=== PATIENT | male | born 1930 | race Caucasian/White ===

== ENCOUNTER 2017-01-20 14:36 | Emergency (ER) | payer OTHER, MEDICARE ==
--- NOTE | 2017-01-20 14:55 | EDPHY ---
H & P Stated Complaint: Feels ping in left chest for last three weeks. Poss hernia. HPI/ROS: CHIEF COMPLAINT: Chest pain. HISTORY OF PRESENT ILLNESS: The patient is an 86-year-old male with a history of CAD and hypertension who presents with sharp left-sided chest pains. He describes them as short, sharp bursts of pain just under the left ribcage that last for 1-2 seconds. He has had 17 of these pains today but has felt them for the past 3 weeks. They have been increasing in frequency recently. He cannot think of inciting or mitigating factors. He denies nausea, shortness of breath, cough, cold symptoms, arm pain, diaphoresis or other complaints. He denies recent traumas to his chest. He does report having pain in the epigastrium from a hernia he has had for many years but the pain today feels different. REVIEW OF SYSTEMS: A ten point review of systems was performed and is negative with the exception of the items mentioned in the HPI. Source: Patient Exam Limitations: No limitations - Personal History Tetanus Vaccine Date: many many years ago - Medical/Surgical History Hx Asthma: No Hx Chronic Respiratory Disease: No Hx Diabetes: No Hx Cardiac Disease: Yes Hx Renal Disease: No Hx Cirrhosis: No Hx Alcoholism: No Hx HIV/AIDS: No Hx Splenectomy or Spleen Trauma: No Other PMH: 1. HTN. 2. CAD. 3. Elevated lipids. 4. 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 5. Arthritis-neck, toes, left hip shoulder - Social History Smoking Status: Never smoked Drug Use: None Additional Social History: He is . - Physical Exam Exam: General Appearance: Alert. Vital signs reviewed. BP 171/85. Eyes: Pupils equal and round, no conjunctival injection, no discharge. Anicteric. ENT, Mouth: Mucous membranes are moist, no oropharyngeal erythema or edema. Neck: No lymphadenopathy, supple. Respiratory: Lungs are clear to auscultation; no wheezes, rales, or rhonchi. Cardiovascular: Regular rate and rhythm; no murmur, rub, or gallop. Gastrointestinal: Abdomen is soft and nontender, no masses or organomegaly, bowel sounds normal. Guarding in mid-epigastric area. Ongoing tenderness in mid- epigastric area due to a known ventral hernia. Skin: Warm and dry, no rashes on exposed skin, normal color. Back: Nontender to palpation over the thoracolumbar spine. No CVAT. Extremities: No lower extremity edema, no calf tenderness or swelling. Neurological: Alert and oriented. Moving all four extremities easily and equally. Psychiatric: Normal affect. Constitutional: Initial Vital Signs Temperature (C) 36.3 C 01/20/17 14:44 Heart Rate 99 01/20/17 14:44 Respiratory Rate 20 01/20/17 14:44 Blood Pressure 171/85 H 01/20/17 14:44 O2 Sat (%) 94 01/20/17 14:44 O2 Delivery Mode Room Air Allergies/Adverse Reactions: No Known Allergies Allergy (Verified 01/20/17 14:43) Home Medications: Medication Instructions Recorded Cholecalciferol Vit D3 [Vitamin D3 1,000 units PO DAILY 08/23/12 1000 units (OTC)] Herbals/Supplements -Info Only 1 each PO AD 08/23/12 [place]-3 Fatty Acids [Fish Oil 1000 1,000 mg PO BID@,15 08/23/12 mg (OTC)] Atorvastatin Calcium [Lipitor] 40 mg PO DAILY 03/01/15 Hydrochlorothiazide [HCTZ (RX)] 25 mg PO DAILY 03/01/15 Multivitamins [Tab-A-Viral] 1 each PO DAILY 03/01/15 ASPIRIN 03/03/16 PENICILLIN V POTASSIUM 03/03/16 Medical Decision Making - Diagnostics EKG Interpretation: 12-LEAD EKG: Please see the full report in [facility]. My interpretation: Normal sinus rhythm Imaging: I viewed and interpreted images myself ED Course/Re-evaluation: 86-year-old male with a cardiac history including hypertension and CAD presents with intermittent sharp left-sided chest pains. On exam he does have a ventral hernia with tenderness in the epigastrium but reports he has had this pain for the past 25 years and today's pain is different in nature and to the left of the hernia pain. I have low suspicion for cardiac process in this patient who is having very brief episodes of sharp pain. We will check an EKG and chest x- ray. An IV was established and labs ordered. 1636: Reassessed patient. We discussed the results of his workup so far.Troponin normal in the setting of pain that has been intermittently present for weeks, with an increase today. No associated symtoms. No precipitating factors. I think this is unlikely to be ACS, as the description is quite atypical. I do not find evidence of pericarditis on EKG or CXR. He does not appear to have an infectious process. There is no pneumonia or other acute process on CXR. No signs of CHF. He is comfortable going home and I feel he is safe to do so. I recommended he follow up with his PCP and return to the ED for any change in his chest pain. I recommended Tylenol for pain control. He is comfortable with this plan. - Data Points Laboratory Results: Laboratory Results 01/20/17 15:20 01/20/17 15:20 Medications Given: Discontinued Medications Aspirin (Aspirin) 324 mg PO EDNOW ONE Stop: 01/20/17 15:15 Last Admin: 01/20/17 15:24 Dose: 324 mg Departure - Departure Disposition: Home, Routine, Self-Care Clinical Impression: Chest pain Qualifiers: Chest pain type: other chest pain Qualified Code(s): R07.89 - Other chest pain ; R07.8 - Other chest pain Condition: Good Instructions: Chest Pain (ED) Additional Instructions: If your chest pain worsens, changes in nature, or becomes constant, you should return to the emergency department. Otherwise, follow up with your primary care provider next week for reevaluation. Take 650mg Tylenol every 4-6 hours as needed for pain. Return to the emergency department for any other serious worsening of condition. Referrals: Sarah Real, SENIOR SUSTAINABILITY ADVISOR [Primary Care Provider] - As per Instructions Report Scribed for: Kia Santiago Report Scribed by: Maurice Rolon Date of Report: 01/20/17 Time of Report: 15:02 Physician Review and Approval Statement: 01/20/17 14:55 Portions of this note were transcribed by the bilingual medical receptionist. I, Dr. Kia Santiago, personally performed the history, physical exam, and medical decision- making; and confirmed the accuracy of the information in the transcribed note.
[2017-01-20] MEDS ORDERED: ASPIRIN 81 MG CHEWABLE TAB PO ONE (15:14)
[2017-01-20 15:28] LABS: % IMMATURE GRANULYOCYTES 0.3 % (0.0-1.1); ABSOLUTE IMMATURE GRANULOCYTES 0.02 10^3/uL (0.00-0.10); ADD DIFF? NO; ADD MORPH? NO; ADD SCAN? NO; ATYPICAL LYMPHOCYTE FLAG 10 (0-99); FRAGMENT RBC FLAG 0 (0-99); HEMATOCRIT 39.6 % (40.0-51.0); HEMOGLOBIN 14.1 g/dL (13.7-17.5); LEFT SHIFT FLG 0 (0-99); LIPEMIA HEMOLYSIS FLAG 90 (0-99); MEAN CELL HEMOGLOBIN 30.5 pg (27.9-34.1); MEAN CELL HEMOGLOBIN CONCENTR. 35.6 g/dL (32.4-36.7); MEAN CELL VOLUME 85.7 fL (81.5-99.8); MEAN PLATELET VOLUME 9.9 fL (8.7-11.7); PLATELET CLUMPS FLAG 0 (0-99); PLATELET COUNT 170 10^3/uL (150-400); RED BLOOD CELL COUNT 4.62 10^6/uL (4.40-6.38); RED CELL DISTRIBUTION WIDTH 12.1 % (11.5-15.2)
[2017-01-20 15:38] LABS: ANION GAP 14 mEq/L (8-16); CALCIUM 10.5 mg/dL (8.5-10.4); CARBON DIOXIDE 21 mEq/l (22-31); CHLORIDE 103 mEq/L (97-110); CREATININE 1.1 mg/dL (0.7-1.3); GLOMERULAR FILTRATION RATE > 60; GLUCOSE 211 mg/dL (70-100); POTASSIUM 3.8 mEq/L (3.5-5.2); SODIUM 138 mEq/L (134-144)
--- NOTE | 2017-01-20 15:40 | CPEKG ---
Heart Rate: 76 RR Interval: 789 P-R Interval: 204 QRSD Interval: 98 QT Interval: 392 QTC Interval: 441 P [place]: 37 QRS [place]: 40 T Wave [place]: 22 EKG Severity - ABNORMAL ECG - EKG Impression: SINUS RHYTHM EKG Impression: INFERIOR INFARCT, AGE INDETERMINATE Electronically Signed By: Kia Santiago 21-Jan-2017 00:06:05
[2017-01-20 15:49] LABS: TROPONIN I < 0.012 ng/mL (0-0.034)
[2017-01-20 17:23] VITALS: RESP 16
[2017-01-20 17:24] VITALS: BP 143/85; PULSE 72; TEMP 97.7; O2SAT 92
== END 2017-01-20 17:24 | disposition home or self-care (01) ==
DX: R07.89 Other chest pain (principal); I10 Essential (primary) hypertension; I25.10 Atherosclerotic heart disease of native coronary artery without angina pectoris; Z79.82 Long term (current) use of aspirin; Z85.46 Personal history of malignant neoplasm of prostate

== ENCOUNTER → 2017-02-07 | Outpatient (CLI) | payer OTHER, MEDICARE | LOC: BMCIMAGING 15:17 | PROVIDERS: ATTEND Orthopaedic Surgery | DX: M16.0 Bilateral primary osteoarthritis of hip (principal); M17.12 Unilateral primary osteoarthritis, left knee; M11.262 Other chondrocalcinosis, left knee; I70.202 Unspecified atherosclerosis of native arteries of extremities, left leg ==

== ENCOUNTER → 2017-02-13 | Outpatient (CLI) | payer OTHER, MEDICARE | LOC: FIMAGING 14:10 | PROVIDERS: ATTEND Orthopaedic Surgery | DX: M16.0 Bilateral primary osteoarthritis of hip (principal); M48.07 Spinal stenosis, lumbosacral region; M46.96 Unspecified inflammatory spondylopathy, lumbar region; K57.30 Diverticulosis of large intestine without perforation or abscess without bleeding ==

== ENCOUNTER 2017-03-05 10:24 | Inpatient (IN) | payer OTHER, MEDICARE ==
--- NOTE | 2017-03-05 07:00 | PDHPUP ---
History & Physical Update H&P update statement: This history and physical update is based on an assessment of the patient which was completed after admission or registration (within 24 hours), but prior to the surgery/procedure.
--- NOTE | 2017-03-05 07:01 | PDIAF ---
- Diagnosis Diagnosis: left hip djd Code Status: Full Code - Medication Management Discharge Medications: Medications to Continue on Transfer Aspirin [Aspirin 81mg (*)] 81 mg PO DAILY 02/09/17 [Last Taken Unknown] Atorvastatin Calcium [Lipitor 40 mg (*)] 40 mg PO DAILY 02/09/17 [Last Taken Unknown] Hydrochlorothiazide [HCTZ (*)] 12.5 mg PO DAILY 02/09/17 [Last Taken Unknown] Irbesartan [Avapro 75 mg (*)] 75 mg PO DAILY 02/09/17 [Last Taken Unknown] metFORMIN HCL [Metformin HCl ER] 500 mg PO DAILY@18 02/09/17 [Last Taken Unknown ] Discharge Medications: Refer to the Discharge Home Medication list for PRN reason. - Orders Services needed: Physical Therapy Activity/Weight Bearing Restrictions: wbat. anterior hip precautions. daily dressing changes. may shower without bandage. no soaking or immersion. linette hose x 2 weeks. f/u at two weeks. seek attn for increasing redness, drainage or discharge. aspirin 325 mg po daily - Follow Up Care Current Providers and Referrals: Sarah Real NP [Primary Care Provider] -
[~2017-03-05 10:24] MED LIST: ROPIVACAINE 0.2% 80 MG, EPINEPHrine 0.2 MG, KETOROLAC TROMETHAMINE 30 MG, morphINE 10 M... IU ONE; TRANEXAMIC ACID 2,000 MG in NS 100 ML IV ONE; TRANEXAMIC ACID 3,000 MG in NS 50 ML IRR ONE
[2017-03-05] MEDS ORDERED: DIPHENOXYLATE/ATROPINE LOMOTIL 1 TAB PO PRN (10:40)
[2017-03-05] MEDS ORDERED: ONDANSETRON DISINTEGRATING 4 MG TAB PO PRN (10:40)
[2017-03-05] MEDS ORDERED: PROMETHAZINE HCL 25 MG SUPPR PR PRN (10:40)
[2017-03-05] MEDS ORDERED: ONDANSETRON 4 MG/2 ML VIAL IVP PRN ×2 (10:40→13:03)
[2017-03-05] MEDS ORDERED: METOCLOPRAMIDE 10 MG/2 ML VIAL IVP PRN (10:40)
[2017-03-05] MEDS ORDERED: diphenhydrAMINE 25 MG CAP PO PRN (10:40)
[2017-03-05] MEDS ORDERED: MAGNESIUM HYDROXIDE 30 ML UDCUP PO PRN (10:40)
[2017-03-05] MEDS ORDERED: traMADol 50 MG TAB PO PRN (10:40)
[2017-03-05] MEDS ORDERED: DIAZEPAM 5 MG TAB PO PRN (10:40)
[2017-03-05] MEDS ORDERED: TEMAZEPAM 15 MG CAP PO PRN (10:40)
[2017-03-05] MEDS ORDERED: PROMETHAZINE HCL 25 MG/ML INJ IVP PRN (10:40)
[2017-03-05] MEDS ORDERED: POLYETHYLENE GLYCOL 3350 17 GM PKT PO PRN (10:40)
[2017-03-05] MEDS ORDERED: LR 1,000 ML IV SCH (10:40)
[2017-03-05] MEDS ORDERED: FAMOTIDINE 20 MG TAB PO ONE (10:40)
[2017-03-05] MEDS ORDERED: oxyCODONE IR 5 MG TAB PO PRN (10:40)
[2017-03-05] MEDS ORDERED: PHARMACY PAIN CONSULT 1 EA MISC PRN (10:40)
[2017-03-05] MEDS ORDERED: ceFAZolin 2 GM/DEXTROSE 100 ML IV ONE (10:40)
[2017-03-05] MEDS ORDERED: BISACODYL 10 MG SUPP PR PRN (10:40)
[2017-03-05] MEDS ORDERED: ACETAMINOPHEN 325 MG TAB PO ONE (10:40)
[2017-03-05] MEDS ORDERED: LACTULOSE 20 GM/30 ML UDCUP PO PRN (10:40)
[2017-03-05] MEDS ORDERED: LIDOCAINE 1% 2 ML INJ ONE (10:52)
[2017-03-05] MEDS ORDERED: LIDOCAINE 1% 2 ML INJ ID PRN (10:54)
[2017-03-05] MEDS ORDERED: LR 1,000 ML IV ONE (10:54)
[2017-03-05] MEDS ORDERED: THROMBIN (BOVINE) 5,000 UNIT VIAL TP ONE (11:16)
[2017-03-05] MEDS ORDERED: CALCIUM CHLORIDE 1 GM/10 ML INJ ONE (11:16)
[2017-03-05] MEDS ORDERED: ceFAZolin 1 GM/5 ML SYR ONE (11:16)
--- NOTE | 2017-03-05 11:24 | PDANEPAE ---
ANE History of Present Illness 86 year old male with PMHx of HTN, NIDDM, prostate cancer (s/p chemo & radiation ) with chronic left hip pain presents for left hip arthroplasty. ANE Past Medical History - Cardiovascular History Hx Hypertension: Yes Hx Arrhythmias: No Hx Chest Pain: No Hx Coronary Artery / Peripheral Vascular Disease: Yes Hx CHF / Valvular Disease: No Hx Palpitations: No Cardiovascular History Comment: CAD improving. - Pulmonary History Hx COPD: No Hx Asthma/Reactive Airway Disease: No Hx Recent Upper Respiratory Infection: No Hx Oxygen in Use at Home: No Hx Sleep Apnea: No Sleep Apnea Screening Result - Last Documented: Positive - Neurologic History Hx Cerebrovascular Accident: No Hx Seizures: No Hx Dementia: No - Endocrine History Hx Diabetes: Yes Endocrine History Comment: NIDDM - Renal History Hx Renal Disorders: Yes Renal History Comment: Stones in past. - Liver History Hx Hepatic Disorders: No - Neurological & Psychiatric Hx Hx Neurological and Psychiatric Disorders: No - Cancer History Hx Cancer: Yes Cancer History Comment: Prostate CA-chemo, radiation. Basal CA-removed. - Congenital Disorder History Hx Congenital Disorders: No - GI History Hx Gastrointestinal Disorders: No - Other Health History Other Health History: Arthritis in joints. Total dentures. - Chronic Pain History Chronic Pain: No - Surgical History Prior Surgeries: 2014-neck BX. Scrotal hydrocele removed. Kidney stone removal. Bilateral cataracts. ANE Review of Systems - Exercise capacity Exercise capacity: >=4 METS METS (RN): 4 METS ANE Patient History - Allergies Allergies/Adverse Reactions: No Known Allergies Allergy (Verified 01/20/17 14:43) - Home Medications Home Medications: Aspirin [Aspirin 81mg (*)] 81 mg PO DAILY 02/09/17 [Last Taken 2 Weeks Ago] Atorvastatin Calcium [Lipitor 40 mg (*)] 40 mg PO DAILY 02/09/17 [Last Taken ] Hydrochlorothiazide [HCTZ (*)] 12.5 mg PO DAILY 02/09/17 [Last Taken 03/04/17] Irbesartan [Avapro 75 mg (*)] 75 mg PO DAILY 02/09/17 [Last Taken 03/04/17] metFORMIN HCL [Metformin HCl ER] 500 mg PO DAILY@18 02/09/17 [Last Taken ] - NPO status NPO Since - Liquids (Date): 03/04/17 NPO Since - Liquids (Time): 21:00 NPO Since - Solids (Date): 03/04/17 NPO Since - Solids (Time): 18:30 - Smoking Hx Smoking Status: Never smoked - Family Anes Hx Family Hx Anesthesia Complications: none ANE Labs/Vital Signs - Vital Signs Vital Signs: reviewed preoperatively; see RN documention for details Blood Pressure: 157/80 Heart Rate: 93 Respiratory Rate: 16 O2 Sat (%): 94 Height: 177.8 cm Weight: 98.43 kg ANE Physical Exam - Airway Mallampati Score: Class 2 Mouth exam: dentures - Pulmonary Pulmonary: no respiratory distress - Cardiovascular Cardiovascular: regular rate and rhythym - ASA Status ASA Status: III ANE Anesthesia Plan Anesthesia Plan: MAC (General anesthesia as back-up plan.), spinal
[2017-03-05] MEDS ORDERED: PROPOFOL/EMULSION 500 MG/50 ML BOTTLE IV ONE (12:17)
[2017-03-05] MEDS ORDERED: HYDROmorphONE/DILAUDID 1 MG/ML SYR IVP PRN (13:03)
[2017-03-05] MEDS ORDERED: HYDROCODONE/APAP 5/325 TAB PO PRN (13:03)
[2017-03-05] MEDS ORDERED: fentaNYL 100 MCG/2 ML INJ IVP PRN (13:03)
[2017-03-05] MEDS ORDERED: LR 500 ML IV PRN (13:03)
[2017-03-05] MEDS ORDERED: NALOXONE HCL 0.4 MG/ML INJ IVP PRN (13:03)
[2017-03-05] MEDS ORDERED: PHENYLEPHRINE HCL 100 MCG/ML SYR ONE (13:15)
--- NOTE | 2017-03-05 14:48 | POSTANESTH ---
Post Anesthetic Evaluation Cardiovascular Status: Normal, Stable Respiratory Status: Normal, Stable Level of Consciousness/Mental Status: Can Participate in Eval Pain Control: Adequate, Prn Tx Ordered Nausea/Vomiting Control: Adequate, Prn Tx Ordered Complications Possibly Related to Anesthesia: None Noted
[2017-03-05] MEDS: ACETAMINOPHEN 325 MG TAB PO SCH ×2 (17:52→18:30)
[2017-03-05] MEDS: ATORVASTATIN CALCIUM 40 MG TAB PO SCH (17:53)
[2017-03-05] MEDS: IRBESARTAN 75 MG TAB PO SCH (17:53)
[2017-03-05] MEDS: HYDROCHLOROTHIAZIDE 12.5 MG CAP PO SCH (17:53)
[2017-03-05] MEDS: SENNOSIDES/DOCUSATE SODIUM TAB PO SCH ×2 (17:54→21:35)
[2017-03-05] MEDS ORDERED: metFORMIN SR 500 MG TAB PO SCH (18:00)
[2017-03-05] MEDS: TRANEXAMIC ACID 650 MG TAB PO SCH (18:30)
[2017-03-05] MEDS: FAMOTIDINE 20 MG TAB PO SCH (21:33)
[2017-03-05] MEDS: ceFAZolin 2 GM/DEXTROSE 100 ML IV SCH (21:36)
[2017-03-05] MEDS: ASPIRIN 325 MG TAB PO SCH (21:57)
[2017-03-06] MEDS: TRANEXAMIC ACID 650 MG TAB PO SCH ×3 (00:11→14:23)
[2017-03-06] MEDS: ACETAMINOPHEN 325 MG TAB PO SCH ×3 (01:32→13:01)
[2017-03-06 04:59] LABS: HEMATOCRIT 32.7 % (40.0-51.0); HEMOGLOBIN 11.3 g/dL (13.7-17.5)
[2017-03-06] MEDS: ceFAZolin 2 GM/DEXTROSE 100 ML IV SCH (05:42)
[2017-03-06 07:31] VITALS: RESP 14
[2017-03-06] MEDS: SENNOSIDES/DOCUSATE SODIUM TAB PO SCH (08:10)
[2017-03-06] MEDS: HYDROCHLOROTHIAZIDE 12.5 MG CAP PO SCH (08:10)
[2017-03-06] MEDS: ASPIRIN 325 MG TAB PO SCH (08:10)
[2017-03-06] MEDS: IRBESARTAN 75 MG TAB PO SCH (08:10)
[2017-03-06] MEDS: ATORVASTATIN CALCIUM 40 MG TAB PO SCH (08:10)
[2017-03-06] MEDS: FAMOTIDINE 20 MG TAB PO SCH (08:10)
--- NOTE | 2017-03-06 08:31 | GDS ---
[f rep st] DISCHARGE SUMMARY ADMISSION DIAGNOSIS: Left hip degenerative joint disease. DISCHARGE DIAGNOSIS: Left hip degenerative joint disease. PROCEDURE: Left total hip arthroplasty. 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 Clinical and radiographic features are consistent with this. He has failed all attem pts at conservative management. I have, therefore, recommended operative intervention. He understo od the risks, benefits, alternatives, and wished to proceed. Written consent was signed and placed in patient's chart. HOSPITAL COURSE: The patient was admitted to the floor after uncomplicated total hip arthroplasty. He tolerated the procedure well. Postoperatively he had no complications. At the time of discharg e, he is tolerating an oral diet. His pain is well controlled on oral medicines. He is voiding wit hout difficulty. His dressing is clean, dry, and intact. He has intact ankle and plantar flexion, dorsiflexion, EHL function. Negative Homans bilaterally. DISCHARGE ACTIVITIES: Anterior hip precautions. No soaking. Fall precautions. SUJATHA hose x2 weeks. DISCHARGE MEDICATIONS: Valium 5 mg 1 p.o. q.8 hours p.r.n. spasm, oxycodone 1-2 every 4 hours p.r.n . pain, and aspirin 325 mg daily for 6 weeks. FOLLOWUP: Follow up in 2 weeks. /[id number]/MODL
[2017-03-06 11:26] VITALS: BP 107/57; PULSE 70; TEMP 97.6; O2SAT 94
--- NOTE | 2017-03-06 13:54 | PDIAF ---
- Diagnosis Diagnosis: left hip djd Code Status: Full Code - Medication Management Discharge Medications: Medications to Continue on Transfer Aspirin [Aspirin 81mg (*)] 81 mg PO DAILY 02/09/17 [Last Taken 2 Weeks Ago] Atorvastatin Calcium [Lipitor 40 mg (*)] 40 mg PO DAILY 02/09/17 [Last Taken ] Hydrochlorothiazide [HCTZ (*)] 12.5 mg PO DAILY 02/09/17 [Last Taken 03/04/17] Irbesartan [Avapro 75 mg (*)] 75 mg PO DAILY 02/09/17 [Last Taken 03/04/17] metFORMIN HCL [Metformin HCl ER] 500 mg PO DAILY@18 02/09/17 [Last Taken ] Aspirin [Aspirin 325 mg (*)] 325 mg PO DAILY #0 tab 03/06/17 [Last Taken Unknown ] Diazepam [Valium 5 MG (*)] 5 mg PO Q6HRS PRN #40 tab 03/06/17 [Last Taken Unknown] oxyCODONE IR [Oxycodone Ir (*)] 5 - 10 mg PO Q3HRS PRN #60 tab 03/06/17 [Last Taken Unknown] Discharge Medications: Refer to the Discharge Home Medication list for PRN reason. - Orders Services needed: Physical Therapy, Occupational Therapy Diet Recommendation: no restrictions on diet Diet Texture: Regular Texture Diet Activity/Weight Bearing Restrictions: wbat. anterior hip precautions. daily dressing changes. may shower without bandage. no soaking or immersion. linette hose x 2 weeks. f/u at two weeks. seek attn for increasing redness, drainage or discharge. aspirin 325 mg po daily - Follow Up Care Current Providers and Referrals: Sarah Real NP [Primary Care Provider] -
--- NOTE | 2017-03-06 15:30 | ASMTCASEMG ---
Living Arrangements What is your living arrangement? Who do you live Answers: With Spouse with? Type Of Residence What kind of residence do you live in? Answers: [facility] Type of Residence Facility Name Notes: [facility] in Home Environment Answers: No Discharge Plan Comments Coordination Status Comments Notes: Pt s/p L RAJIV. PT/OT recommending homecare. Discussed homecare options with pt and his . They wo uld like [facility]. Notified [facility] and they are able to accept pt. Pt discharging home today with homecare. Date Signed: 03/06/2017 03:29 PM Electronically Signed By:Montserrat Galindo
--- NOTE | 2017-03-06 15:46 | ASDISCHSUM ---
Discharge Information Plan Status:Home with Home Health Medically Cleared to Leave:03/06/2017 Discharge Date:03/06/2017 02:07 PM CM D/C Disposition:Home Health Service ADT D/C Disposition:Home Health Service Projected Discharge Date:03/06/2017 11:00 AM Transportation at D/C:Family Discharge Delay Reason: Follow-Up Date:03/06/2017 11:00 AM Discharge Slot: Final Diagnosis: Placement Information Referral Type:*Home Health Care Services Referral ID:[id number] Provider Name[facility] [address] [facility] [address] Address 2: City:[place] Selection Factors: State:[place] Patient Contact Information Contact Name:ABRAHAN Relationship: Address:[address] [facility] Work Phone: City:[place] Alternate Phone: State/Zip Code:[place] [address] Email: Financial Information Financial Class: Primary Plan Desc:MEDICARE INPATIENT Primary Plan Number:[id number] Secondary Plan Desc:[employer]/MDR SUPPLEMENT Secondary Plan Number:[id number] Assessment Information [facility] Initial CM Assessment Living Arrangements What is your living Answers: With Spouse arrangement? Who do you live with? Type Of Residence What kind of residence do Answers: Snf you live in? Type of Residence Facility Name Notes: [facility] in Home Answers: No Environment Discharge Plan Comments Coordination Status Comments Notes: Pt s/p L RAJIV. PT/OT recommending homecare. Discussed homecare options with pt and his . They would like [facility]. Notified [facility] and they are able to accept pt. Pt discharging home today with homecare. Date Signed: 03/06/2017 03:29 PM Electronically Signed By:Montserrat Galindo Intervention Information
--- NOTE | 2017-03-08 07:39 | GOP ---
[f rep st] OPERATIVE REPORT DATE OF OPERATION: 03/05/2017 SURGEON: Abel Moura MD FOUNDRY WORKER APPRENTICE: Chinmay Rayo, [employer], [facility], who was a medical necessity for the entirety of the case. PREOPERATIVE DIAGNOSIS: Left hip degenerative joint disease. POSTOPERATIVE DIAGNOSIS: Left hip degenerative joint disease. PROCEDURE PERFORMED: Left total hip arthroplasty. FINDINGS: SPECIMENS: To Pathology, femoral head. 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 This interferes with his activities of daily living. He has failed all attempts at conservative ma nagement. I have therefore recommended operative intervention. He understood the risks, benefits, alternatives, and wished to proceed. Written consent was signed and placed in the patient's chart. DESCRIPTION OF PROCEDURE: The patient was identified in the preanesthesia area. The left hip clear ly demarcated as the operative site with indelible marker. He was given 2 g of Ancef intravenously en route to the operative suite. In the OR, a spinal anesthetic was placed. Patient was positioned in the supine position and additional sedation carried out. Appropriate time-out procedure was car ried out. The pelvis and both lower extremities were sterilely prepped and draped in the usual [facility] ion. Attention was first turned to the right hemipelvis after appropriate time-out procedure was ca rried out. A linear incision was made over the ASIS 2 cm in length. Three pins were placed in the pelvis and the pelvic reference array for the MAKOplasty protocol was affixed. Attention was then t urned to the left hip, an anterior approach was made. This carried sharply through the skin and sub cutaneous tissue, directly to the fascia overlying the tensor fascia yoni. The tensor fascia yoni w as then opened. The tensor muscle was elevated, retracted in a lateral direction. The underlying v ascular structures were identified, ligated, cauterized and transected. The rectus was elevated off the anterior capsule and Hohmann retractors were placed medially and superiorly over the femoral ne ck. A T was made in the capsule. The retractors were placed into an intracapsular position. An ac etabular checkpoint was then placed and a femoral neck cut was made. A bony wedge was withdrawn fol lowed by removal of the head. There was gross eburnation of the bone and degenerative changes. The remnants of the acetabular labrum were sharply excised. The bony landmarks entered into the robot program in standard fashion. The acetabulum was reamed in the appropriate orientation with the robo tic guidance with a 58 mm reamer. The final shell was then impacted using the robot assistance guid agusto once again, in an opening angle of 40 degrees and anteversion of 20 degrees. A Trident X3 0-de gree polyethylene insert was placed with a 36 mm inner diameter. Attention was then turned to the f emur. This was delivered through the use of extension of the table soft tissue releases and retract ors. The proximal canal was opened with a rongeur. The canal was identified using a soft suction t ip guide. Serial broaching was carried out to a size 8 mm stem. Ultimately, a size 8, 132 degree n radha angle hip stem was then placed. Trial reduction was carried out, and ultimately a 36 mm -5 mm b iologics delta head was then placed. This allowed full leg length judaism, stability profile wi th full extension, external rotation to 90 degrees without instability. Intraoperative fluoroscopy was utilized during this process to confirm location and position of the components. The wound was copiously irrigated. The deep tissues injected with a platelet-rich plasma solution and the soft ti ssue instilled with a joint cocktail of ropivacaine, morphine, Toradol, and epinephrine. The wound was then closed in layers using 0 Vicryl, 2-0 Monocryl, and chris. Sterile dressing was applied a nd the patient was awakened, extubated, taken to recovery room in good, stable condition. TOTAL TOURNIQUET TIME: None. COMPLICATIONS: None. IMPLANTS: The [place] Tritanium acetabular shell, size 58 mm. Trident X3 0-degree polyethylene ins ert, size 36 mm, Biolox delta ceramic head, 36 mm minus 5 mm neck length. The Accolade II 132 degre e neck angle hip stem, size 8. /[id number]/MODL
== END 2017-03-06 14:07 | disposition home health service (06) | DRG 470 ==
LOC: F3N 10:28
PROVIDERS: ADMIT Orthopaedic Surgery; ATTEND Orthopaedic Surgery
PROC: 0SRB04Z Replacement of Left Hip Joint with Ceramic on Polyethylene Synthetic Substitute, Open Approach (ICD-10-PCS; principal; 2017-03-05 12:15)
CPT/HCPCS: 97110-GP; 97161-GP; 97165-GO; G8978-GP-CI; G8979-GP-CI; G8980-GP-CI; G8987-GO-CI; G8988-GO-CI; G8989-GO-CI; J0171; J0690; J1885; J2370; J2704; J2795

== ENCOUNTER → 2017-04-17 | Outpatient (CLI) | payer OTHER, MEDICARE | LOC: BMCIMAGING 14:20 | PROVIDERS: ATTEND Physician Assistant | DX: Z47.1 Aftercare following joint replacement surgery (principal); Z96.642 Presence of left artificial hip joint ==

== ENCOUNTER → 2017-05-29 | Outpatient (CLI) | payer OTHER, MEDICARE | LOC: BMCIMAGING 14:41 | PROVIDERS: ATTEND Physician Assistant | DX: Z47.1 Aftercare following joint replacement surgery (principal); Z96.642 Presence of left artificial hip joint ==

== ENCOUNTER → 2018-10-15 | Outpatient (CLI) | payer OTHER, MEDICARE ==
[~2018-10-15] MED LIST changes: +IOPAMIDOL (ISOVUE-300) 100 ML BTL ONE; -ROPIVACAINE 0.2% 80 MG, EPINEPHrine 0.2 MG, KETOROLAC TROMETHAMINE 30 MG, morphINE 10 M... IU ONE; -TRANEXAMIC ACID 2,000 MG in NS 100 ML IV ONE; -TRANEXAMIC ACID 3,000 MG in NS 50 ML IRR ONE
== END ==
LOC: FIMAGING 12:43
PROVIDERS: ATTEND Otolaryngology
DX: C76.0 Malignant neoplasm of head, face and neck (principal)
CPT/HCPCS: 70491; Q9967; 82565-PO